=== PATIENT | female | born 1935 | race Caucasian/White ===

== ENCOUNTER → 2017-02-14 | Outpatient (CLI) | payer MEDICARE, OTHER | END | disposition home or self-care (01) | LOC: CVU 08:24 | PROVIDERS: ATTEND Registered Nurse | DX: I65.23 Occlusion and stenosis of bilateral carotid arteries (principal); G45.9 Transient cerebral ischemic attack, unspecified; E78.5 Hyperlipidemia, unspecified; R73.03 Prediabetes; Z85.3 Personal history of malignant neoplasm of breast | CPT/HCPCS: 93880 ==

== ENCOUNTER → 2017-04-14 | Outpatient (CLI) | payer MEDICARE, OTHER | LOC: CFH 09:18 | PROVIDERS: ATTEND Internal Medicine Cardiovascular Disease | DX: R42 Dizziness and giddiness (principal); R07.89 Other chest pain; I08.2 Rheumatic disorders of both aortic and tricuspid valves; Z86.73 Personal history of transient ischemic attack (TIA), and cerebral infarction without residual deficits | CPT/HCPCS: 93306 ==

== ENCOUNTER → 2017-06-03 | Outpatient (CLI) | payer MEDICARE, OTHER ==
[2017-06-03 12:51] LABS: CHLORIDE 108 mmol/L (98-107)
[2017-06-03 12:57] LABS: ALBUMIN 3.5 g/dL (3.4-5.0); ANION GAP 6 mmol/L (5-15); CALCIUM 8.9 mg/dL (8.5-10.1)
== END ==
LOC: CFH 09:29
PROVIDERS: ATTEND Registered Nurse
DX: R42 Dizziness and giddiness (principal)
CPT/HCPCS: 36415; 80069

== ENCOUNTER → 2017-06-06 | Outpatient (CLI) | payer MEDICARE, OTHER ==
[~2017-06-06] MED LIST: GADOBUTROL 7.5 MMOL/7.5 ML VIAL ONE
== END | disposition home or self-care (01) ==
LOC: CFH 08:53
PROVIDERS: ATTEND Registered Nurse
DX: G31.9 Degenerative disease of nervous system, unspecified (principal); I10 Essential (primary) hypertension; I65.29 Occlusion and stenosis of unspecified carotid artery; R42 Dizziness and giddiness
CPT/HCPCS: 70553; A9585

== ENCOUNTER → 2018-08-18 | Outpatient (CLI) | payer MEDICARE, OTHER ==
[~2018-08-18] MED LIST changes: +ASPI-496 PO; +CALC-623 PO; +CETI10CA PO; +CHOL200024 PO; +EZET1TAB26 PO; +FLUT9.9S NS; +GADOBUTROL 10 MMOL/10 ML PFS ONE; -GADOBUTROL 7.5 MMOL/7.5 ML VIAL ONE; +KRIL1CAP PO; +LACT1CAP35 PO; +LINA145C PO; +MONT10TA6 PO; +UBID1CAP43 PO; +VENL150T PO; +VITA150T PO
== END | disposition home or self-care (01) ==
LOC: CFH 08:45
PROVIDERS: ATTEND Registered Nurse
DX: G31.9 Degenerative disease of nervous system, unspecified (principal)
CPT/HCPCS: 70553; A9585